=== PATIENT | female | born 1965 | race Caucasian/White ===

== ENCOUNTER → 2017-01-12 | Outpatient (CLI) | payer OTHER ==
[~2017-01-12] MED LIST: LISI20TA11 PO; METF1000 PO; METF500T4 PO; ZOC10 PO
--- NOTE | 2017-01-12 16:25 | RADRPT ---
Echocardiogram Report Patient Name: OPHELIA JIMENEZ Gender: Female Date: 1965 Study Date: 12-Jan-2017 Youth Counselor: GEORGES Location: Ref. Physician: SAUNDRA COLE Quality: Adequate Procedures: Transthoracic echocardiogram with complete 2D, M-Mode, and doppler examination. Indications: Evaluate Left Ventricular function. 2D/M Mode Doppler Measurement Value Normal Ranges Measurement Value Normal Ranges LVIDd 2D 5.8 3.5 - 5.6 cm AI Peak PG 25.0 mmHg LVIDs 2D 3.7 2.1 - 4.1 cm AI Peak Antony 2.5 m/sec FS 2D 35.9 % AI PHT 489.0 msec LVPWd 2D 1.0 0.6 - 1.1 cm LVOT Peak Antony 0.8 m/sec IVSd 2D 0.8 0.6 - 1.1 cm LVOT Peak PG 2.0 mmHg IVS/LVPW 2D 0.8 MV E Peak Antony 0.7 m/sec AoR Diam 2D 2.2 2.0 - 3.7 cm MV A Peak Antony 1.0 m/sec LA/Ao 2D 2 0 - 1 MV E/A 0.7 EDV 2D 191.0 cm3 MV Decel Time 176 msec ESV 2D 50.2 cm3 MV E/A 0.7 LA Dimen 2D 3.4 2.3 - 4.0 cm MR Peak PG 69.0 mmHg MR Peak Antony 4.2 m/sec TR Peak Antony 2.3 m/sec TR Peak PG 21.0 mmHg RVSP 24.0 mmHg Findings Left Ventricle: Normal left ventricular wall thickness. Mild enlargement of left ventricle cavity. Moderate global left ventricular systolic dysfunction. Ejection fraction is visually estimated at 35 %. Tissue Doppler/Mitral Doppler indices are consistent with impaired relaxation (Stage I diastolic dysfunction). Right Ventricle: Normal right ventricular size. Normal right ventricular systolic function. Left Atrium: The left atrium is normal in size. Right Atrium: The right atrium is normal in size. Atrial Septum: Not well visualized. Mitral Valve: Mitral valve leaflets appear mildly thickened. Mild mitral leaflet calcification. Mild mitral annular calcification. Mild mitral valve regurgitation. Aortic Valve: Normal trileaflet aortic valve structure. Mild aortic valve regurgitation. Tricuspid Valve: Normal appearance of the tricuspid valve. Estimated peak PA systolic pressure 24 mmHg. There is mild tricuspid regurgitation. Pulmonic Valve: Normal pulmonic valve appearance. There is trace pulmonic regurgitation. Pericardium: Normal pericardium with no significant pericardial effusion. Aorta: Normal aortic root. IVC: Normal size and normal respiratory collapse consistent with normal right atrial pressure. Conclusions 1.Normal left ventricular wall thickness. Mild enlargement of left ventricle cavity. Moderate global left ventricular systolic dysfunction. Ejection fraction is visually estimated at 35 %. Tissue Doppler/Mitral Doppler indices are consistent with impaired relaxation (Stage I diastolic dysfunction). 2.Mitral valve leaflets appear mildly thickened. Mild mitral leaflet calcification. Mild mitral annular calcification. Mild mitral valve regurgitation. 3.Normal trileaflet aortic valve structure. Mild aortic valve regurgitation. 4.Normal appearance of the tricuspid valve. Estimated peak PA systolic pressure 24 mmHg. There is mild tricuspid regurgitation. 5.Normal pulmonic valve appearance. There is trace pulmonic regurgitation. Electronically Signed By: Luis Cool 12-Jan-2017 16:25:28 -0700 Patient Name: OPHELIA JIMENEZ Study Date: 12-Jan-2017 [id number]
== END | disposition home or self-care (01) ==
LOC: EKG 12:16
PROVIDERS: ATTEND Internal Medicine Hematology & Oncology
DX: C50.919 Malignant neoplasm of unspecified site of unspecified female breast (principal); Z79.899 Other long term (current) drug therapy
CPT/HCPCS: 93306

== ENCOUNTER 2018-08-10 04:48 | Inpatient (IN) | END 2018-08-11 14:51 | disposition home or self-care (01) | DRG 601 ==